=== PATIENT | female | born 1935 | race Caucasian/White ===

== ENCOUNTER → 2019-09-01 10:14 | Outpatient (CLI) | payer MEDICARE, BC, OTHER, SELFPAY | PROVIDERS: PCP Family Medicine; Visit Provider Family Medicine | DX: R30.0 Dysuria (principal) | CPT/HCPCS: 87077; 87086; 87186 ==

== ENCOUNTER → 2019-10-23 15:54 | Outpatient (CLI) | payer MEDICARE, BC, OTHER, SELFPAY ==
[2019-10-23 16:39] LABS: Appearance Urine UA CLOUDY; Bilirubin Urine UA NEGATIVE (NEGATIVE); Color Urine UA YELLOW; Glucose Urine UA NEGATIVE (Negative); Ketones Urine UA NEGATIVE (NEGATIVE); Leukocyte Esterase Urine UA 3+ (NEGATIVE); Nitrite Urine UA POSITIVE (Negative); Occult Blood Urine UA 3+ (Negative); Protein Urine UA 2+ (Negative); Urobilinogen Urine UA 0.2 E.U./dL (0.2)
[2019-10-23 17:06] LABS: Bacteria Urine Many (>30); RBC Urine 10-30/HPF (0-5/HPF); WBC Urine >100/HPF (0-5/HPF)
[2019-10-23 17:07] LABS: Culture Indicated Urine Specimen Cultured
== END ==
PROVIDERS: PCP Family Medicine; Referring Provider Family Medicine; Visit Provider Family Medicine
DX: R30.0 Dysuria (principal)
CPT/HCPCS: 81001; 87077; 87086; 87186

== ENCOUNTER → 2019-10-31 09:10 | Outpatient (CLI) | payer MEDICARE, BC, OTHER, SELFPAY ==
[2019-10-31 09:18] LABS: Bacteria Urine None Seen; RBC Urine None Seen (0-5/HPF); WBC Urine None Seen (0-5/HPF)
[2019-10-31 09:52] LABS: Appearance Urine UA CLEAR; Bilirubin Urine UA NEGATIVE (NEGATIVE); Color Urine UA YELLOW; Glucose Urine UA NEGATIVE (Negative); Ketones Urine UA NEGATIVE (NEGATIVE); Leukocyte Esterase Urine UA NEGATIVE (NEGATIVE); Nitrite Urine UA NEGATIVE (Negative); Occult Blood Urine UA NEGATIVE (Negative); Protein Urine UA NEGATIVE (Negative); Specific Gravity Urine UA 1.015 (1.000-1.035); Urobilinogen Urine UA 0.2 E.U./dL (0.2)
[2019-10-31 10:07] LABS: pH Urine UA 6.5 (4.5-8.0)
[2019-10-31 10:11] LABS: Culture Indicated Urine Cult Not Indicated; Urine Comments Microscopic Normal
== END ==
PROVIDERS: PCP Family Medicine; Referring Provider Family Medicine; Visit Provider Family Medicine
DX: N39.0 Urinary tract infection, site not specified (principal); R30.0 Dysuria
CPT/HCPCS: 81001; 87077; 87086; 87147; 87186

== ENCOUNTER → 2020-02-18 10:46 | Outpatient (CLI) | payer MEDICARE, BC, OTHER, SELFPAY ==
--- NOTE | 2020-02-18 | DI.CT.S_ITS ---
PROCEDURE: CT HEAD/BRAIN WO CON INDICATIONS: Communicating hydrocephalus TECHNIQUE: Noncontrast 4.5 mm thick angled axial sections acquired from the foramen magnum to the vertex, with coronal and sagittal reformats. For radiation dose reduction, the following was used: automated exposure control, adjustment of mA and/or kV according to patient size. COMPARISON: Outside Facility, RG, MRI HEAD W/O CONTRAST, 10/29/2018, 17:47. Outside Facility, RG, CT HEAD W/O CONTRAST, 11/04/2018, 8:41. Outside Facility, RG, CT HEAD W/O CONTRAST, 12/29/2018, 18:20. Outside Facility, RG, CT HEAD W/O CONTRAST, 03/10/2019, 22:20. FINDINGS: Image quality: There is artifact associated with the metallic hardware. CSF spaces: There is a right frontal approach ventriculostomy catheter seen, with the tip near the midline within the right lateral ventricle, near the foramina of [place]. Basal cisterns are patent. There is a minimal right-sided subdural hygroma seen. The ventricles are symmetric in size and shape. Brain: Aneurysm coils are seen along the midline near the expected location of the anterior communicating artery. A stent is also seen, as on series 3, image 11. No intracranial masses. There is cerebral volume loss for age, with resultant ventricular and sulcal prominence. There are periventricular and deep white matter chronic small vessel ischemic changes. There is intracranial internal carotid artery atherosclerosis. Prominence of the basilar artery and the left vertebral artery are again seen. Skull and face: Right-sided craniotomy changes are seen. Calvarium and visualized facial bones appear intact, without suspicious lesions. Sinuses: Visualized sinuses and mastoids are clear. IMPRESSION: Stable postoperative study, with a right frontal approach ventriculostomy catheter, aneurysm coils, and an arterial stent. No findings of hydrocephalus are seen. Prominent left vertebral artery and basilar artery again seen. Minimal right-sided subdural hygroma. Dictated by: Jared Zhou M.D. on 02/18/2020 at 10:11 Approved by: Jared Zhou M.D. on 02/18/2020 at 10:15
== END ==
PROVIDERS: PCP Family Medicine; Referring Provider Family Medicine; Visit Provider Psychiatry & Neurology Neurology
DX: G91.0 Communicating hydrocephalus (principal); Z98.2 Presence of cerebrospinal fluid drainage device
CPT/HCPCS: 70450

== ENCOUNTER → 2020-05-05 08:49 | Outpatient (CLI) | payer MEDICARE, BC, OTHER, SELFPAY ==
[2020-05-05] MEDS: COVID-19 VACC #1, MRNA(MOD) 100 MCG/0.5 ML VIAL IM (08:52)
== END ==
PROVIDERS: PCP Family Medicine; Visit Provider Internal Medicine
DX: Z23 Encounter for immunization (principal)
CPT/HCPCS: 0011A; 91301

== ENCOUNTER → 2020-05-31 09:18 | Outpatient (CLI) | payer MEDICARE, BC, OTHER, SELFPAY ==
[2020-05-31] MEDS: COVID-19 VACC #2, MRNA(MOD) 100 MCG/0.5 ML VIAL IM (09:23)
== END ==
PROVIDERS: PCP Family Medicine; Visit Provider Internal Medicine
DX: Z23 Encounter for immunization (principal)
CPT/HCPCS: 0012A; 91301

== ENCOUNTER → 2020-06-10 08:38 | Outpatient (CLI) | payer MEDICARE, BC, OTHER, SELFPAY ==
[2020-06-10 09:55] LABS: Add Manual Diff / Slide Review NO; Basophils Absolute Auto 0 /uL (0-100); Basophils Percent Auto 0.6 % (0-2); Eosinophils Absolute Auto 200 /uL (0-450); Hematocrit 35.9 % (36-46); Hemoglobin 12.1 g/dL (12.0-16.0); Lymphocytes Absolute Auto 1100 /uL (1100-4500); Lymphocytes Percent Auto 25.9 % (25-40); Mean Corpuscular HGB Conc 33.7 % (30-36); Mean Corpuscular Hemoglobin 30.5 PG (26-34); Mean Corpuscular Volume 90.4 fL (80-100); Monocytes Absolute Auto 400 /uL (0-900); Monocytes Percent Auto 8.8 % (3-14); Neutrophils Absolute Auto 2500 /uL (1500-7000); Neutrophils Percent Auto 60.7 % (50-75); Platelet Count 217 X10^3/uL (150-400); Red Blood Cell Count 3.97 X10^6/uL (4.0-5.2); Red Cell Distribution Width 12.5 % (11.6-14.8); White Blood Cell Count 4.1 X10^3/uL (4.5-11.0)
[2020-06-10 10:05] LABS: Alanine Aminotransferase 20 IU/L (<35); Albumin 4.3 g/dL (3.5-5.0); Albumin Globulin Ratio 1.4 (1.0-2.8); Alkaline Phosphatase 59 U/L (38-126); Aspartate Aminotransferase 28 IU/L (14-36); Bilirubin Total 0.5 mg/dL (0.2-1.3); Blood Urea Nitrogen 26 mg/dL (7-17); Calcium 9.1 mg/dL (8.4-10.2); Carbon Dioxide 28 mmol/L (22-32); Chloride 107 mmol/L (98-107); Cholesterol 154 mg/dL (140-199); Estimated Glomerular Filt Rate 57.4 mL/min (>60); Globulin 3.1 g/dL (1.7-4.1); Glucose 101 mg/dL (80-110); HDL Cholesterol 70 mg/dL (40-60); HEMOLYSIS < 15 (0-50); LDL Cholesterol Calculated 70 mg/dL (<100); Potassium 3.9 mmol/L (3.4-5.1); Sodium 140 mmol/L (137-145); Total Protein 7.4 g/dL (6.3-8.2); Triglycerides 68 mg/dL (35-150)
[2020-06-10 10:50] LABS: Vitamin D 25 Hydroxy (D3) 66.9 ng/mL (30.0-100.0)
[2020-06-10 11:08] LABS: Thyroid Stimulating Hormone 2.66 uIU/mL (0.47-4.68)
[2020-06-10 17:39] LABS: Creatinine Urine Random 60.9 mg/dL
[2020-06-10 17:58] LABS: Microalbumin Urine Random < 0.6 mg/dL (0-1.6)
== END ==
PROVIDERS: PCP Family Medicine; Referring Provider Family Medicine; Visit Provider Family Medicine
DX: E78.5 Hyperlipidemia, unspecified (principal); M81.0 Age-related osteoporosis without current pathological fracture; G47.33 Obstructive sleep apnea (adult) (pediatric); I10 Essential (primary) hypertension; I48.0 Paroxysmal atrial fibrillation; I60.7 Nontraumatic subarachnoid hemorrhage from unspecified intracranial artery; I60.9 Nontraumatic subarachnoid hemorrhage, unspecified; S06.5X9A Traumatic subdural hemorrhage with loss of consciousness of unspecified duration, initial encounter
CPT/HCPCS: 36415; 80053; 80061; 82043; 82306; 82570; 84443; 85025

== ENCOUNTER → 2021-02-22 16:51 | Outpatient (CLI) | payer MEDICARE, BC, OTHER, SELFPAY ==
[2021-02-22 18:55] LABS: Appearance Urine UA SL CLOUDY; Bilirubin Urine UA NEGATIVE (NEGATIVE); Color Urine UA YELLOW; Glucose Urine UA NEGATIVE (Negative); Ketones Urine UA NEGATIVE (NEGATIVE); Leukocyte Esterase Urine UA NEGATIVE (NEGATIVE); Nitrite Urine UA NEGATIVE (Negative); Occult Blood Urine UA NEGATIVE (Negative); Protein Urine UA NEGATIVE (Negative); Specific Gravity Urine UA <=1.005 (1.000-1.035); Urobilinogen Urine UA 0.2 E.U./dL (0.2)
[2021-02-22 19:14] LABS: Bacteria Urine Many (>30); Culture Indicated Urine Specimen Cultured; RBC Urine None Seen (0-5/HPF); WBC Urine 5-10/HPF (0-5/HPF); pH Urine UA 6.5 (4.5-8.0)
== END ==
PROVIDERS: PCP Family Medicine; Referring Provider Family Medicine; Visit Provider Family Medicine
DX: R30.0 Dysuria (principal)
CPT/HCPCS: 81001; 87077; 87086

== ENCOUNTER 2022-01-25 12:29 | Emergency (ER) | payer MEDICARE, BC, OTHER, SELFPAY ==
[2022-01-25 12:34] VITALS: BP 117/72; PULSE 62; RESP 15; O2SAT 96; BMI 25.8
[2022-01-25 13:29] LABS: COVID19 -Nasal RAPID Negative (Negative)
[2022-01-25 14:09] VITALS: PULSE 60; O2SAT 97
--- NOTE | 2022-01-25 14:17 | DI.RAD.S_ITS ---
PROCEDURE: XR CHEST 2V INDICATIONS: SOB TECHNIQUE: 2 views of the chest were acquired. COMPARISON: Outside Facility, RG, XR CXR 2V, 06/11/2019, 6:16. FINDINGS: Surgical changes and devices: Probable occluder device at the left atrial appendage. Lungs and pleura: Lungs are clear. No pleural effusions or pneumothorax. Mediastinum: Mediastinal contours are normal. Heart size is normal. Bones and chest wall: No suspicious bony abnormalities. Soft tissues appear unremarkable. IMPRESSION: No acute cardiopulmonary abnormality. Dictated by: Sumanth Pascal M.D. on 01/25/2022 at 15:42 Approved by: Sumanth Pascal M.D. on 01/25/2022 at 15:43
--- NOTE | 2022-01-25 14:35 | ED.URI ---
HPI - URI/Sore Throat <Kam Warner PA-C - Last Filed: 01/25/22 15:51> General Chief Complaint: Upper Respiratory Symptoms Stated Complaint: cough/fever/congestion/sore throat Time Seen by Provider: 01/25/22 14:00 Source: patient Mode of arrival: Ambulatory History of Present Illness HPI Narrative: This is an 86-year-old female presents to the emergency department due to upper respiratory infectious symptoms for the last 3 or 4 days. States that she has a productive cough, ?high temperatures? with the highest being 101.2, as well as a sore throat. Denies any chest pain, shortness of breath, nausea, vomiting, or any other concerning signs or symptoms. Related Data Home Medications Medication Instructions Recorded Confirmed aspirin 81 mg tablet,delayed 81 mg PO DAILY 09/01/19 09/20/20 release docusate sodium 100 mg capsule 100 mg PO BID PRN 02/10/21 sennosides 8.6 mg tablet (Natural 8.6 mg PO BID PRN 02/10/21 Senna Laxative) Previous Rx's Medication Instructions Recorded DISABLED PARKING PERMIT #1 ea 11/26/19 atorvastatin 10 mg tablet See Rx Instructions .Route 02/10/21 .COMPLEX #90 tabs carvedilol 6.25 mg tablet 6.25 mg PO BID #180 tabs 02/10/21 amlodipine 10 mg tablet 10 mg PO DAILY #90 tabs 08/01/21 alendronate 70 mg tablet 70 mg PO QWEEK #12 tabs 11/27/21 Allergies Allergy/AdvReac Type Severity Reaction Status Date / Time nitrofurantoin Allergy Intermediate itchy rash Verified 01/25/22 12:33 Sulfa (Sulfonamide Allergy Unknown as a child Verified 01/25/22 12:33 Antibiotics) Review of Systems <Kam Warner PA-C - Last Filed: 01/25/22 15:51> Review of Systems Narrative: GENERAL: Denies chills, fatigue, malaise, fever, sweats. HEENT: Reports sore throat, Denies sinus pain, ear pain,, difficulty swallowing, dizziness. RESPIRATORY: Reports cough, Denies dyspnea, , wheezing, hemoptysis, sputum. CARDIOVASCULAR: Denies chest pain, palpitations, orthopnea, edema, GASTROINTESTINAL: Denies nausea, vomiting, abdominal pain, diarrhea, constipation, melena. : Denies dysuria, frequency, incontinence, hematuria, urinary retention. MUSCULOSKELETAL: denies weakness, joint pain, or bony pain SKIN: Denies rash, skin lesions, or other NEUROLOGIC: Denies weakness, headache, numbness, change in speech, confusion, seizures, incoordination. PSYCHIATRIC: No concerning psychosocial issues. 12 point review of systems is negative except for those stated above Patient History <Kam Warner PA-C - Last Filed: 01/25/22 15:51> Medical History XI (obstructive sleep apnea) Osteoporosis Paroxysmal atrial fibrillation Ruptured cerebral aneurysm Subarachnoid hemorrhage Subdural hematoma Surgical History S/P left atrial appendage ligation Status post hysterectomy Status post tonsillectomy and adenoidectomy Family History Child Age: 62 Hepatitis C Child Age: 60 Melanoma Child Age: 58 Prostate cancer Child Age: 48 Anorexia Social History marital status: Smoking Status: Never smoker second hand exposure: No alcohol intake: current substance use type: does not use Smoking Status: Never smoker alcohol intake frequency: holidays/special occasions only Substance Use Type: does not use Exam <Kam Warner PA-C - Last Filed: 01/25/22 15:51> Narrative Exam Narrative: GENERAL: Well-developed patient, in mild distress. HEAD: Atraumatic. Normocephalic. EYES: Pupils equal round and reactive. Extraocular motions intact. No scleral icterus. No injection or drainage. ENT: Nose without bleeding, purulent drainage. Throat without erythema, tonsillar hypertrophy or exudate. Airway patent. NECK: Trachea midline. Non tender CARDIOVASCULAR: Regular rate and rhythm without murmurs, gallops, or rubs. RESPIRATORY: Coarse breath sounds bilaterally, Breath sounds equal bilaterally. No wheezes, rales, or rhonchi. GASTROINTESTINAL: Abdomen soft, non-tender, nondistended. EXTREMITIES: No edema or joint tenderness. BACK: Nontender without deformity or crepitance. No flank tenderness. NEURO: AOx3. SKIN: No rash or erythema of visible areas Initial Vital Signs Initial Vital Signs: Vital Signs Pulse Rate 62 01/25/22 12:34 Respiratory Rate 15 01/25/22 12:34 Blood Pressure 117/72 01/25/22 12:34 Pulse Oximetry 96 01/25/22 12:34 Oxygen Delivery Method 01/25/22 12:34 Oxygen Flow Rate 96.5 01/25/22 12:34 <Brittanie Foley DO - Last Filed: 01/26/22 08:09> Initial Vital Signs Initial Vital Signs: Vital Signs Pulse Rate 62 01/25/22 12:34 Respiratory Rate 15 01/25/22 12:34 Blood Pressure 117/72 01/25/22 12:34 Pulse Oximetry 96 01/25/22 12:34 Oxygen Delivery Method 01/25/22 12:34 Oxygen Flow Rate 96.5 01/25/22 12:34 Course <Kam Warner PA-C - Last Filed: 01/25/22 15:51> Orders Ordered: ED Orders 01/25/22 12:35 COVID19 -Nasal RAPID/Pre-Proc Stat 01/25/22 14:17 XR chest 2V Stat 01/25/22 14:34 Respiratory Panel (Film Array) Stat Vital Signs Vital signs: Vital Signs - 8 hr 01/25/22 12:34 01/25/22 14:09 Pulse Rate 62 60 Respiratory Rate 15 Blood Pressure 117/72 Pulse Oximetry 96 97 Oxygen Delivery Method Room Air Room Air Oxygen Flow Rate 96.5 <Brittanie Foley DO - Last Filed: 01/26/22 08:09> Orders Ordered: ED Orders 01/25/22 12:35 COVID19 -Nasal RAPID/Pre-Proc Stat 01/25/22 14:17 XR chest 2V Stat 01/25/22 14:34 Respiratory Panel (Film Array) Stat Vital Signs Vital signs: Vital Signs - 8 hr 01/25/22 12:34 01/25/22 14:09 Pulse Rate 62 60 Respiratory Rate 15 Blood Pressure 117/72 Pulse Oximetry 96 97 Oxygen Delivery Method Room Air Room Air Oxygen Flow Rate 96.5 MDM - URI/Sore Throat <Kam Warner PA-C - Last Filed: 01/25/22 15:51> Lab Data Labs: Lab Results 01/25/22 01/25/22 Range/Units 12:35 14:34 Chlamy pneumoniae PCR Not detected (Not Detect) Adenovirus (PCR) Detected H (Not Detect) B. pertussis DNA (PCR) Not detected (Not Detecte) B.parapertussis DNA PCR Not detected (Not Detecte) Coronavirus OC43 (PCR) Not detected (Not Detect) Coronavirus HKU1 (PCR) Not detected (Not Detect) Coronavirus 229E (PCR) Not detected (Not Detect) SARS-CoV-2 (PCR) Negative Not detected (Negative) Coronavirus NL63 (PCR) Not detected (Not Detect) Human Metapneumovir PCR Not detected (Not Detect) Influenza Type A (PCR) Not detected (Not Detect) Influenza Type B (PCR) Not detected (Not Detect) M. pneumoniae (PCR) Not detected (Not Detect) Parainfluenza 1 (PCR) Not detected (Not Detect) Parainfluenza 2 (PCR) Detected H (Not Detect) Parainfluenza 3 (PCR) Not detected (Not Detect) Parainfluenza 4 (PCR) Not detected (Not Detect) RSV (PCR) Not detected (Not Detect) Entero/Rhino (PCR) Not detected (Not Detect) Point of Care Testing Rapid Strep A Negative Imaging Data Chest x-ray: Radiologist's Impression: [address] [address] XRay Report Signed Patient: Sophie Campbell MR#: [id number] : 1935 Acct:[id number] Age/Sex: 86 / F Date of Service: 01/25/22 Loc: Accession Number: [id number] ?? Procedure: XR chest 2V Ordering Provider: Kam Warner P.A-C PROCEDURE:? XR CHEST 2V ? INDICATIONS:? SOB ? TECHNIQUE:? 2 views of the chest were acquired.? ? COMPARISON:? Outside Facility, RG, XR CXR 2V, 06/11/2019, 6:16. ? FINDINGS:? ? Surgical changes and devices:? Probable occluder device at the left atrial appendage. ? Lungs and pleura:? Lungs are clear.? No pleural effusions or pneumothorax.? ? Mediastinum:? Mediastinal contours are normal.? Heart size is normal.? ? Bones and chest wall:? No suspicious bony abnormalities.? Soft tissues appear unremarkable.? ? IMPRESSION:? No acute cardiopulmonary abnormality. ? ? ? Dictated by: Sumanth Pascal M.D. on 01/25/2022 at 15:42 ? ? Approved by: Sumanth Pascal M.D. on 01/25/2022 at 15:43 ? MDM Narrative Medical decision making narrative: 86-year-old female presents to the emergency department due to URI symptoms. Chest x-ray shows evidence of a pneumonia. Vitals within normal limits. Viral panel came back positive for adenovirus and parainfluenza. Recommended symptomatic and conservative treatment. <Brittanie Foley, DO - Last Filed: 01/26/22 08:09> Lab Data Labs: Lab Results 01/25/22 01/25/22 Range/Units 12:35 14:34 Chlamy pneumoniae PCR Not detected (Not Detect) Adenovirus (PCR) Detected H (Not Detect) B. pertussis DNA (PCR) Not detected (Not Detecte) B.parapertussis DNA PCR Not detected (Not Detecte) Coronavirus OC43 (PCR) Not detected (Not Detect) Coronavirus HKU1 (PCR) Not detected (Not Detect) Coronavirus 229E (PCR) Not detected (Not Detect) SARS-CoV-2 (PCR) Negative Not detected (Negative) Coronavirus NL63 (PCR) Not detected (Not Detect) Human Metapneumovir PCR Not detected (Not Detect) Influenza Type A (PCR) Not detected (Not Detect) Influenza Type B (PCR) Not detected (Not Detect) M. pneumoniae (PCR) Not detected (Not Detect) Parainfluenza 1 (PCR) Not detected (Not Detect) Parainfluenza 2 (PCR) Detected H (Not Detect) Parainfluenza 3 (PCR) Not detected (Not Detect) Parainfluenza 4 (PCR) Not detected (Not Detect) RSV (PCR) Not detected (Not Detect) Entero/Rhino (PCR) Not detected (Not Detect) Point of Care Testing Rapid Strep A Negative Discharge Plan Departure Patient Disposition: Home Clinical Impression: Viral illness Activity Restrictions/Additional Instructions: Thank you for coming to the [facility] Emergency Department today. The chest x-ray showed no evidence of pneumonia. The COVID test was negative but your viral panel did come back positive for some common viral diseases. These usually improve over time. I recommend [id number] cold medications to help with your symptoms. I hope you feel better soon. Prescriptions: No Action aspirin 81 mg tablet,delayed release (DR/EC) 81 mg PO DAILY (DME) DISABLED PARKING PERMIT See Rx Instructions .ROUTE .MEDSUPPLY Qty: 1 0RF Rx Instructions: I find this patient to be medically disabled and qualified for disabled parking as indicated, and signed, on the accompanying Disabled Parking Application for Individuals. carvedilol 6.25 mg tablet 6.25 mg PO BID Qty: 180 3RF Rx Instructions: must administer with a meal/food atorvastatin 10 mg tablet See Rx Instructions .ROUTE .COMPLEX Qty: 90 3RF Dose Instruction: TAKE 1 TABLET(10 MG) BY MOUTH EVERY EVENING Rx Instructions: TAKE 1 TABLET(10 MG) BY MOUTH EVERY EVENING docusate sodium 100 mg capsule 100 mg PO BID PRN sennosides [Natural Senna Laxative] 8.6 mg tablet 8.6 mg PO BID PRN amlodipine 10 mg tablet 10 mg PO DAILY Qty: 90 0RF alendronate 70 mg tablet 70 mg PO QWEEK Qty: 12 3RF Referrals: Magy Bahena MD [Primary Care Provider] - Visit Report Forms: Patient Portal/API <Brittanie Foley DO - Last Filed: 01/26/22 08:09> Cosign ED Attending Cosignature Attestation: I was immediately available in the department for consultation. Documentation has been reviewed. I agree with assessment and plan.
[2022-01-25 15:41] LABS: Adenovirus Detected (Not Detect); B. parapertussis Not Detected (Not Detecte); Bordetella pertussis Not Detected (Not Detecte); Chlamydophila pneumoniae Not Detected (Not Detect); Coronavirus 229E Not Detected (Not Detect); Coronavirus HKU1 Not Detected (Not Detect); Coronavirus NL 63 Not Detected (Not Detect); Coronavirus OC43 Not Detected (Not Detect); Human Metapneumovirus Not Detected (Not Detect); Human Rhinovirus/Enterovirus Not Detected (Not Detect); Influenza A Not Detected (Not Detect); Influenza B Not Detected (Not Detect); Mycoplasma pneumoniae Not Detected (Not Detect); Parainfluenza Virus 1 Not Detected (Not Detect); Parainfluenza Virus 2 Detected (Not Detect); Parainfluenza Virus 3 Not Detected (Not Detect); Parainfluenza Virus 4 Not Detected (Not Detect); Respiratory Syncytial Virus Not Detected (Not Detect); SARS- CoV-2 Not Detected (Not Detecte)
[2022-01-25 16:07] VITALS: BP 126/59; PULSE 53; RESP 18; O2SAT 97
== END 2022-01-25 16:08 | disposition home or self-care (01) ==
PROVIDERS: Emergency Medicine; Emergency Provider Physician Assistant Medical; PCP Family Medicine
DX: B34.9 Viral infection, unspecified (principal); B34.0 Adenovirus infection, unspecified; B34.8 Other viral infections of unspecified site; Z20.822 Contact with and (suspected) exposure to COVID-19
CPT/HCPCS: 71046; 87633; 87635; 87880; 99282; 99283; C9803